=== PATIENT | male | born 1950 | race Hispanic/Latino ===

== ENCOUNTER 2021-04-17 08:46 | Emergency (ER) | payer MEDICARE, SELFPAY ==
[2021-04-17 09:00] VITALS: BP 176/85; PULSE 76; RESP 16; TEMP 36.3; O2SAT 99
--- NOTE | 2021-04-17 09:11 | ED.UPPEXIN ---
HPI - Extremity Injury (Upper) General Chief Complaint: Extremity Injury, Upper Stated Complaint: Right finger injury Time Seen by Provider: 04/17/21 09:20 Source: patient Mode of arrival: ambulatory Limitations: no limitations History of Present Illness HPI narrative: Nomi Dexter is a 70-year-old male with a PMH of anxiety, HTN, high cholesterol, anticoagulation, who comes to [facility] after scraping ice off of window last and consequently has developed a blister on his right index finger that is now deflated. He is concerned that it is in fact frostbite and wants an antibiotic. He has been using VapoRub on finger with a Band-Aid Related Data Home Medications Medication Instructions Recorded Confirmed alprazolam 1 mg DIRECTED 04/17/21 04/17/21 atorvastatin 40 mg DIRECTED 04/17/21 04/17/21 clopidogrel 75 mg DIRECTED 04/17/21 04/17/21 ergocalciferol (vitamin D2) 1,250 unit DIRECTED 04/17/21 04/17/21 Allergies Allergy/AdvReac Type Severity Reaction Status Date / Time No Known Allergies Allergy Verified 04/17/21 09:17 Review of Systems Review of Systems: CONSTITUTIONAL: Denies fever, chills, sweats. EYES: Denies visual changes, redness, discharge. ENT: Denies rhinorrhea, congestion, sore throat, otalgia. CARDIOVASCULAR: Denies chest pain, palpitations, edema. RESPIRATORY: Denies dyspnea, wheezing, cough GASTROINTESTINAL: Denies abdominal pain, nausea, vomiting, diarrhea. GENITOURINARY: Denies dysuria, hematuria, abnormal discharge SKIN: Denies rash or itching. Small yellow area about 1 x 2 at tip of right index finger that is yellowish NEUROLOGIC: Denies numbness, or focal weakness. PSYCHIATRIC: Denies anxiety or depression. [facility] Past Medical History Medical History High cholesterol Hypertension Surgical History Surgical History History of coronary artery stent placement Social History Social History (Updated 04/17/21 @ 09:29 by Shelia Mercado CNP) Smoking status: Never smoker Alcohol intake: current Comments At time of signature, I agree with nursing past medical, surgical, social and family history. There is no relevant family history pertinent to the presenting complaint. Exam Narrative: GENERAL: This is a well-nourished, well-developed patient, in mild distress. HEAD: normocephalic, atraumatic. EYES:. Sclera clear/white. Vision is grossly intact. EARS: External ears normal, . Hearing grossly intact. NOSE: External nose normal without nasal discharge, nares without redness, no rhinorrhea. THROAT: Mucous membranes moist, NECK: Neck supple, non-tender CARDIOVASCULAR: Regular rate and rhythm without murmurs, gallops, or rubs. RESPIRATORY: Clear to auscultation. Breath sounds equal bilaterally. No wheezes, rales, or rhonchi. GASTROINTESTINAL: Not done SKIN: warm, intact with no suspicious lesions or rash, good texture and turgor. Has a hard yellowish spot on right index finger, looks like deflated blister NEURO: awake, alert, and oriented to person, place and time. There were no obvious focal neurologic abnormalities. Steady gait EXTREMITIES: Normal range of motion. BACK: Nontender without deformity Course Course Emergency Course: Patient use deicer on when she will last week and got a blister the following day is now yellowish spot and is concerned about infection patient has been using vapor rub on it and so directed to you start using Neosporin with a Band-Aid and will give Keflex [facility] of Care: [facility] Vital Signs Vital signs: Vital Signs Temperature 97.3 F L 04/17/21 09:00 Pulse Rate 76 04/17/21 09:00 Respiratory Rate 16 04/17/21 09:00 Blood Pressure 176/85 H 04/17/21 09:00 Pulse Oximetry 99 04/17/21 09:00 Temperature 97.3 F L 04/17/21 09:00 Pulse Rate 76 04/17/21 09:00 Respiratory Rate 16 04/17/21 09
== END 2021-04-17 09:40 | disposition home or self-care (01) ==
PROVIDERS: Emergency Provider Nurse Practitioner
DX: T23.621A Corrosion of second degree of single right finger (nail) except thumb, initial encounter (principal); E78.00 Pure hypercholesterolemia, unspecified; I10 Essential (primary) hypertension; I25.10 Atherosclerotic heart disease of native coronary artery without angina pectoris; F41.9 Anxiety disorder, unspecified; Z79.4 Long term (current) use of insulin
CPT/HCPCS: 99203; G0463

== ENCOUNTER 2021-10-16 13:10 | Emergency (ER) | payer MEDICARE, SELFPAY ==
--- NOTE | ~2021-10-16 | XR_ITS ---
EXAMINATION: XR ankle LT min 3V DATE: 10/16/2021 13:30 INDICATION: Left ankle injury and swelling. TECHNIQUE: 4 views of left ankle were obtained. COMPARISON: None. FINDINGS: Bone alignment normal. No fracture. There is heterotopic ossification distal to lateral mal leolus. Joint spaces are normal. There are enthesophytes at the posterior and plantar aspects of calc aneal tuberosity. Ankle soft tissue swelling is noted. IMPRESSION: 1. No fracture. Reviewed, dictated and finalized at location A. IMPRESSION: 1. No fracture.
[2021-10-16 13:19] VITALS: BP 154/76; PULSE 71; RESP 18; TEMP 36.1; O2SAT 99
--- NOTE | 2021-10-16 13:32 | ED.LOWEXIN ---
HPI - Extremity Injury (Lower) General Chief Complaint: Extremity Injury, Lower Stated Complaint: left ankle pain Time Seen by Provider: 10/16/21 13:32 History of Present Illness HPI Narrative: Nomi Dexter is a 70 yo male with high cholesterol, anxiety, HTN, stent placement last Nov who comes with bruised swollen left ankle and foot from a fall over a ledge on Tuesday. His foot and ankle are warm to touch but bruised from toes all the way up to mid calf Related Data Home Medications Medication Instructions Recorded Confirmed alprazolam 1 mg tablet 1 mg PO DIRECTED 04/17/21 10/16/21 atorvastatin 40 mg tablet 40 mg PO DIRECTED 04/17/21 10/16/21 clopidogrel 75 mg tablet 75 mg PO DIRECTED 04/17/21 10/16/21 ergocalciferol (vitamin D2) 1,250 1,250 unit PO DIRECTED 04/17/21 10/16/21 mcg (50,000 unit) capsule metoprolol succinate 25 mg 25 mg PO DAILY 10/16/21 10/16/21 tablet,extended release 24 hr Allergies Allergy/AdvReac Type Severity Reaction Status Date / Time No Known Allergies Allergy Verified 10/16/21 13:21 Review of Systems Review of Systems: CONSTITUTIONAL: Denies fever, chills, sweats. EYES: Denies visual changes, redness, discharge. ENT: Denies rhinorrhea, congestion, sore throat, otalgia. CARDIOVASCULAR: Denies chest pain, palpitations, edema. RESPIRATORY: Denies dyspnea, wheezing, cough GASTROINTESTINAL: Denies abdominal pain, nausea, vomiting, diarrhea. GENITOURINARY: Denies dysuria, hematuria, abnormal discharge SKIN: Denies rash or itching. NEUROLOGIC: Denies numbness, or focal weakness. PSYCHIATRIC: Denies anxiety or depression. Left foot and ankle swelling and bruising PMF[facility] Past Medical History Medical History High cholesterol Hypertension Surgical History Surgical History History of coronary artery stent placement Social History Social History Smoking status: Never smoker Alcohol intake: current Comments At time of signature, I agree with nursing past medical, surgical, social and family history. There is no relevant family history pertinent to the presenting complaint. Exam Narrative: GENERAL: This is a well-nourished, well-developed patient, in mild distress. HEAD: normocephalic, atraumatic. EYES: Sclera clear/white. Vision is grossly intact. EARS: External ears normal, Hearing grossly intact. NOSE: External nose normal without nasal discharge, nares without redness, no rhinorrhea. THROAT: Mucous membranes moist, NECK: Neck supple, non-tender CARDIOVASCULAR: Regular rate and rhythm without murmurs, gallops, or rubs. RESPIRATORY: Clear to auscultation. Breath sounds equal bilaterally. No wheezes, rales, or rhonchi. GASTROINTESTINAL: Not done, SKIN: warm, intact with ecchymosis of foot and right ankle with swelling, 2+ pedal pulse, skin warm no calf pain NEURO: awake, alert, and oriented to person, place and time. There were no obvious focal neurologic abnormalities. Steady gait EXTREMITIES: Normal range of motion. BACK: Nontender without deformity Course Course Emergency Course: Patient here after fall on Tuesday with bruising and pain in left foot X-ray shows-no fracture there is heterotropic ossification distal to lateral malleolus joint spaces normal there are enteral foot sites at the posterior and plantar aspects of the calcaneal tuberosity soft tissue swelling noted Patient should be in a boot and tramadol Level of Care: [facility] Vital Signs Vital signs: Vital Signs Temperature 96.9 F L 10/16/21 13:19 Pulse Rate 71 10/16/21 13:19 Respiratory Rate 18 10/16/21 13:19 Blood Pressure 154/76 H 10/16/21 13:19 Pulse Oximetry 99 10/16/21 13:19 Oxygen Delivery Room Air 10/16/21 13:19 Temperature 96.9 F L 10/16/21 13:19 Pulse Rate 71 10/16/21 13:19 Res
== END 2021-10-16 14:02 | disposition home or self-care (01) ==
PROVIDERS: Emergency Provider Nurse Practitioner
DX: S93.402A Sprain of unspecified ligament of left ankle, initial encounter (principal); S96.912A Strain of unspecified muscle and tendon at ankle and foot level, left foot, initial encounter; W19.XXXA Unspecified fall, initial encounter; E78.00 Pure hypercholesterolemia, unspecified; I10 Essential (primary) hypertension
CPT/HCPCS: 73610; 99213; G0463